=== PATIENT | male | born 1985 | race Caucasian/White ===

== ENCOUNTER 2020-06-30 14:28 | Outpatient (CLI) | payer OTHER ==
[2020-06-30] MEDS ORDERED: GADOBUTROL 15 MMOL/15 ML VIAL ONE (14:46)
[2020-06-30] MEDS ORDERED: GADOBUTROL 15 MMOL/15 ML VIAL IVP ONE (16:24)
--- NOTE | 2020-07-02 13:14 | MRI Report ---
PROCEDURE: Shoulder RT W/WO INDICATIONS: SCAPULA- OTHER SPECIFIED JOINT DISORDERS OF RT LILA CONTRAST: IV CONTRAST: Gadavist ml: 10.5 TECHNIQUE: Noncontrast oblique coronal T1 spin echo and T2 fast spin echo with fat saturation, oblique sagittal T1 spin echo and T2 fast spin echo with fat saturation, axial T1 spin echo and T2 fast spin echo with fat saturation through the shoulder. Post-contrast oblique coronal, oblique sagittal, and axial T1 spin echo with fat saturation through the shoulder. COMPARISON: None. FINDINGS: Image quality: Excellent. Bones and joints: Surface skin marker is placed over posterior lateral aspect of right shoulder over the level of mid to lower scapular. There is no marrow edema. No fracture or dislocation. No suspicio us intraosseous lesion. Soft tissues: There is a fairly homogeneously T1 and T2 hyperintense structure involving posterior la teral right deltoid muscle and measures up to 6.5 x 4.2 x 8.8 cm in size. No contrast enhancement is noted within this structure. Subtle thin internal septations are seen. There is complete suppression of internal signal within this structure on fat suppressed sequences. No other soft tissue mass or fl uid collection is seen. No gross full-thickness muscle or tendon rupture. IMPRESSION: 1. 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 No other soft tissue mass or area of abnor mal enhancement is seen. 2. No marrow signal abnormality. No fracture or dislocation. Reviewed by: Vinayak Hutchison MD on 07/02/2020 12:13 PM [place] Approved by: Vinayak Hutchison MD on 07/02/2020 12:13 PM AKST Station ID: [id number]
== END 2020-06-30 14:29 | disposition home or self-care (01) ==
LOC: DI 14:28
PROVIDERS: ATTEND Orthopaedic Surgery
DX: M25.811 Other specified joint disorders, right shoulder (principal); R22.31 Localized swelling, mass and lump, right upper limb
CPT/HCPCS: 73223; A9585

== ENCOUNTER 2021-10-02 07:52 | Outpatient (CLI) | payer OTHER ==
[2021-10-02 09:01] VITALS: BP 129/101
--- NOTE | 2021-10-02 09:01 | SLEEP CARE CONSULTATION ---
Information from patient questionnaire entered by Michel Sellers MA. I have reviewed and concur with the information entered by Michel Sellers MA. This document represents the service I personally performed and the decisions made by , Damaris Harris ARNP. History of Present Illness Service Date and Time: 10/02/2021 0752 Reason for Visit: New patient ([place] [address], NO PRIORS) Chief Complaint: reports: Unrefreshed sleep, Snoring, Excessive daytime sleepiness, Observed pauses in breathing, Fatigue, Frequent awakenings at night, Other Date of Onset: 2-3 YEARS Usual bedtime: 9-10 PM Time it takes to fall asleep: 15 MINUTES Snores at night: Yes Observed to quit breathing while asleep: Yes Sleeps alone due to snoring: Yes Number of times waking at night: 3 Reasons for waking at night: reports: Gasping for air, Other (unknown reasons; wake up feeling jolted/anxious) Toss, Turn, or Twitch while sleeping: Yes Recalls having dreams: No Usually gets out of bed at: [id number] Feels refreshed in the morning: No Morning headache: Yes (2-3 a week that last until he gets moving in the morning, 20-30 mins) Sleepy or fatigued during the day: Yes Ever fallen asleep while driving: No Takes day naps: Yes (daily, at least an hour) Dreams during day naps: No Prior sleep studies: No Additional HPI information: I had the pleasure of seeing MICHAEL ESPOSITO today regarding the possibility of him having a sleep disorder. His current complaints are excessive daytime sleepiness, fatigue, frequent night awakenings, observed pauses in breathing, snoring and unrefreshed sleep. He states he is tired all the time. He states he wakes up often for no apparent reason. He states he will get up in the morning feeling pressure in body/head and sometimes with shortness of breath/gasping for air. He has been told by his kids that he snores loudly and his will sleep on couch. His has noted pauses in breathing. He states once his head clears in the morning he is fine through the day but he normally takes about an hour nap every day. He denies drowsy driving. - Parasomnia Symptoms Ever been unable to move upon waking from sleep: No Walks in sleep: No Talks in sleep: No Ever acted out dreams in sleep: No Ever felt weak in the knees when startled or emotional: No Bothered by creepy, crawly, restless sensations in legs: No Problems with memory or concentration: No Subjective Initial [place] Sleepiness Scale score: 14 (2021) Social History The patient's occupation is a AT. Patient is and lives in . Have you smoked in the past 12 months: Yes Cigarettes per day (20/pack): 10 Years of smokin Smoking Pack Years: 7.5 Alcohol use: Yes Alcohol amount and frequency: 1-2 X WEEKLY Caffeine use: Yes Caffeine amount and frequency: 1-2 X DAILY Family History Family history of sleep disordered breathing: No (snoring) Family Hx Sleep Apnea: Mother: Snoring, Father: Snoring, Sibling: Snoring, Grandparent: Snoring Allergies and Home Medications Known drug allergies: No Drug allergies reviewed: Yes Home medication list reviewed: Yes (no daily medications or supplements) Review of Systems Cardiovascular: reports: high blood pressure (every time he gets checked at doctor's office) Ear/Nose/Throat: reports: sinus problems (prone to sinus headaches), tonsillectomy (when a child), wisdom teeth removed Immunologic: denies: allergies to food or environment Physical Exam Vital signs obtained and entered by: LI RUFFIN Blood Pressure: 129/101 (RIGHT, PULSE 101, RESP 19, ) Cuff size: wrist Heart Rate: 53 O2 Saturation: 98 (WITH PAPER MASK) Height: 6 ft 1 in Weight: 216 lb (CLOTHES) Body Mass Index: 28.5 BMI Classification: Overweight Neck circumference: 16.5 (inches) Mouth and throat: narrow oropharynx Soft palate: long Hard palate: arched Uvula: normal Uvula visualization: 50% Mallampati Class II Tongue: enlarged in size with teeth hoyt on lateral edges Tonsils: absent bilaterally Chin and jaw: normal size and position Neck: normal w/o lymphadenopathy or thyromegaly Heart: regular rate and rhythm Lungs: clear bilaterally Impression and Plan 1. Suspected Obstructive Sleep Apnea-Hypopnea Syndrome, as suggested by a history of loud and irregular snoring, observed cessation of breath while asleep, gasping or choking in sleep, morning headache, frequent awakening during the night, unrefreshed sleep, and excessive daytime sleepiness. Narrow oropharynx and obesity are common predisposing factors for obstructive sleep apnea-hypopnea syndrome. I recommend proceeding to polysomnography to confirm the diagnosis and to assess severity. If the patient has significant sleep disordered breathing, a manual CPAP titration study will also be performed to find the optimal treatment pressure. I informed the patient of what the sleep studies involve and after some discussion, obtained agreement to proceed. The pathophysiology of obstructive sleep apnea-hypopnea syndrome was discussed with the patient and health risks of cardiovascular and cerebrovascular disease if not treated. AAS brochure for obstructive sleep apnea-hypopnea syndrome given and reviewed. Risks of drowsy driving discussed in detail and patient advised to avoid long distance driving and to cable puller at the first sign of drowsiness. Patient agreed to plan. * Schedule polysomnography +- manual CPAP titration study and return in 1-2 weeks after the study to discuss result and initiate therapy. * Avoid long distance driving or driving when feeling sleepy. * Avoid alcohol, sedative and muscle relaxant around bedtime. * Attempt to lose weight. * Review instructions provided by trained office staff on how to prepare for the sleep study. * Return for follow-up after sleep study completed. Counseling Topics: Weight loss health impact Visit Type: In Office Time Spent with Patient (minutes): 30 Provider Statement: I spent 100% of the Face to Face Visit with the patient with greater than 50% spent counseling the patient and coordination of care.
== END 2021-10-02 07:53 | disposition home or self-care (01) ==
LOC: SC 07:52
PROVIDERS: ATTEND Nurse Practitioner Family
DX: R06.83 Snoring (principal); G47.10 Hypersomnia, unspecified; R53.83 Other fatigue; G47.8 Other sleep disorders; R51.9 Headache, unspecified; R06.81 Apnea, not elsewhere classified; F17.210 Nicotine dependence, cigarettes, uncomplicated; E66.3 Overweight; Z68.28 Body mass index [BMI] 28.0-28.9, adult
CPT/HCPCS: 99203; 99212

== ENCOUNTER 2021-10-08 08:17 | Outpatient (CLI) | payer OTHER | END 2021-10-08 08:18 | disposition home or self-care (01) | LOC: SC 08:17 | PROVIDERS: ATTEND Nurse Practitioner Family | DX: G47.33 Obstructive sleep apnea (adult) (pediatric) (principal); R09.02 Hypoxemia | CPT/HCPCS: 95806 ==

== ENCOUNTER 2021-10-16 12:46 | Outpatient (CLI) | payer OTHER ==
[2021-10-16 13:31] VITALS: BP 138/93
--- NOTE | 2021-10-16 13:31 | SLEEP CARE CONSULTATION ---
Information from patient questionnaire entered by Michel Sellers MA. I have reviewed and concur with the information entered by Michel Sellers MA. This document represents the service I personally performed and the decisions made by , Damaris Harris ARNP. History of Present Illness Service Date and Time: 10/16/2021 1246 Initial [place] Sleepiness Scale score: 14 (2021) Current [place] Sleepiness Scale score: 13 (2021) Additional HPI information: MICHAEL ESPOSITO returns for follow up and results of the recently performed home sleep study. I explained the pathophysiology behind obstructive sleep apnea. We then spent quite a bit of time discussing different treatment options. For mild obstructive sleep apnea, surgery and oral appliance are alternatives to nasal CPAP therapy but in moderate or severe cases, nasal CPAP is the most effective and reliable treatment. Because apnea is primarily in supine position, then positional management therapy could be effective. Methods discussed such as positioning with pillows to prevent supine sleep. I reviewed the impact of weight changes on sleep apnea and strongly recommended losing weight. After some discussion, the patient opted to go with the nasal CPAP therapy. Nasal autoCPAP set at 4-15 cmH20 will be ordered with rationale explained. A manual titration study will be ordered if unable to find optimal pressure with office adjustments. I explained how CPAP machine works and what to expect when using the machine. Using CPAP every night in order to get used to it was emphasized. Patient advised to put CPAP mask on before getting into bed so as not to fall asleep without CPAP. To assist acclimation to CPAP use, it could also be used for a short time during day while reading or watching TV. The patient was instructed to call the CPAP supplier to discuss any mechanical problem that may occur. If the mask given is uncomfortable or is difficult to keep on through the night even with adjustment, contact the CPAP supplier as many will replace with another mask style if notified before 30 days. If snoring or perceives is not getting enough air or too much air from the machine, notify this office. AASM patient education PAP tips reviewed and given to patient. Patient counseled not drink alcohol less than 4 hours before bedtime as it can increase snoring and apnea. Patient was cautioned about risks of drowsy driving until sleepiness symptoms resolve. Sleep Study - Results Type of Sleep Study: Home sleep study (F/U HOMESTUDY) Prior sleep studies: No Polysomnography/Home Sleep Study results: Physician Impression: The quality of the study is good. The length of the study is adequate (> 240 minutes). Please also see the tabulated and graphic data. 1. Obstructive Sleep Apnea-Hypopnea (ICD-10 G47.33), mild, with an AHI of 8.5/hr and juliana SaO2 of 80%. During the study, the patient had 9 apneas (9 obstructive, 0 central, 0 mixed) and 24 hypopneas. The longest episode lasted 74.5 seconds. The patient slept mostly in supine position (supine AHI was 10.1 and non-supine, 0.00). 2. Hypoxemia (ICD-10 R09.02), mild, with the lowest oxygen saturation of 80 % and 2.9 minutes with SaO2 under 90%. Baseline oxygen saturation was normal (Average oxygen saturation was 93%). Allergies and Home Medications Known drug allergies: No Drug allergies reviewed: Yes Home medication list reviewed: Yes (no changes) Review of Systems Review of systems same as previous: Yes (no changes) Physical Exam Vital signs obtained and entered by: Darrius SELLERS CMA KARLOS Blood Pressure: 138/93 (RIGHT, 89 PULSE, RESP 18, ) Cuff size: wrist Heart Rate: 92 O2 Saturation: 97 (PAPER MASK) Height: 6 ft 1 in Weight: 215 lb Body Mass Index: 28.3 BMI Classification: Overweight Impression and Plan 1. Obstructive Sleep Apnea-Hypopnea Syndrome, mild, with lowest oxygen saturation of 80%. Obviously this is the cause of the patients symptoms of unrefreshed sleep, and excessive daytime sleepiness. As mentioned above, the patient will be started on nasal autoCPAP therapy with pressure set at 4-15 cmH2 O. Compliance guidelines also reviewed. A copy of compliance guidelines will be given for reference at check out. Because the apnea is more severe supine, I instructed to avoid sleeping supine using pillow positioning until able to start CPAP use. 2. Hypoxemia, mild, with the lowest oxygen saturation of 80 % and 2.9 minutes with SaO2 under 90%. His baseline oxygen saturation was normal with an average oxygen saturation of 93%. * Nasal auto CPAP therapy, pressure at 4-15 cm H2O. * Attempt to lose weight. * Avoid alcohol consumption near bedtime. * Avoid supine sleep until using CPAP. * The patient is again cautioned about driving until sleepiness completely resolves. * Return one month after CPAP obtained. I will assess response to therapy and compliance at that time. Counseling Topics: Sleeping position, Weight loss health impact Visit Type: In Office Time Spent with Patient (minutes): 20 Provider Statement: I spent 100% of the Face to Face Visit with the patient with greater than 50% spent counseling the patient and coordination of care.
== END 2021-10-16 12:47 | disposition home or self-care (01) ==
LOC: SC 12:46
PROVIDERS: ATTEND Nurse Practitioner Family
DX: G47.33 Obstructive sleep apnea (adult) (pediatric) (principal); R09.02 Hypoxemia; E66.3 Overweight; Z68.28 Body mass index [BMI] 28.0-28.9, adult
CPT/HCPCS: 99212; 99213

== ENCOUNTER 2022-03-25 08:30 | Outpatient (CLI) | payer OTHER ==
[2022-03-25 09:21] VITALS: BP 143/98
--- NOTE | 2022-03-25 09:21 | SLEEP CARE CONSULTATION ---
Information from patient questionnaire entered by Michel Sellers MA. I have reviewed and concur with the information entered by Michel Sellers MA. This document represents the service I personally performed and the decisions made by , Damaris Harris ARNP. History of Present Illness Service Date and Time: 03/25/2022 0830 Previous diagnosis: Mild, Obstructive Sleep Apnea-Hypopnea Syndrome AHI: 8.5 (2021) Reason for follow up: first compliance (BAM HILTON 02/17/2022, ) Equipment type: CPAP Equipment obtained from: Other ([facility]; got initial supplies) Mask style: Full face Backup mask available: No (will keep old mask when replaced) Last cushion change: 1 month Prior sleep studies: No Type of Sleep Study: Home sleep study (F/U HOMESTUDY) HPI additional information: MICHAEL ESPOSITO was diagnosed to have mild, AHI 8.5, obstructive sleep apnea-hypopnea syndrome and returned today for CPAP therapy first compliance follow-up. Sleep Study - Results Type of Sleep Study: Home sleep study (F/U HOMESTUDY) Prior sleep studies: No CPAP Compliance Data - Data Reviewed with Patient Average duration of nightly device use: 6 hours 20 minutes Compliance rate %: 90 (02/23/2022-03/24/2022; 29/30 days used) Current pressure setting (cmH2O): 4-15 (median 6.0, avg 9.6, max 11.4) Average residual AHI: 1.6 Central apnea: .1 Obstructive apnea: .5 Hypopnea: .1 Average large leak: .3 Subjective Missed days of use due to: reports: travel, other (woke up with mask off face) Patient concerns: reports: other (needs supplies). denies: aerophagia, mask discomfort, air blowing in eyes, mask leak noise, condensation in mask/hose, nasal congestion, dry mouth, nose, throat, epistaxis Observed to snore while using device: No Current pressure setting perceived as: comfortable On therapy, patient: reports: sleeping better, awakening more refreshed, being more awake and alert during the day, more rested overall. denies: drowsiness while driving Initial [place] Sleepiness Scale score: 14 (2021) Current [place] Sleepiness Scale score: 12 (03/25/2022) Allergies and Home Medications Known drug allergies: No Drug allergies reviewed: Yes Home medication list reviewed: Yes (no changes) Review of Systems Review of systems same as previous: Yes (no changes) Physical Exam Vital signs obtained and entered by: LI RUFFIN Blood Pressure: 143/98 (RIGHT, PULSE 76, RESP 18, ) Heart Rate: 74 O2 Saturation: 98 (PAPER MASK) Height: 6 ft 1 in Weight: 230 lb (UNIFORM AND BOOTS) Body Mass Index: 30.3 BMI Classification: Obese Impression and Plan 1. Obstructive Sleep Apnea-Hypopnea Syndrome, mild, with good treatment compliance and good apnea control. On CPAP therapy, the patient has better sleep quality and is more rested overall. The patients pressure will be changed to autoCPAP 9-12 cmH20 to reflect the pressures being used. Patient advised to contact me if pressure change is uncomfortable so that it can be adjusted. Goals for apnea control discussed. Patient denies problems with oral dryness, nasal congestion, epistaxis, skin irritation or aerophagia. Patient's apnea severity and rationale for treatment to reduce apnea, improve sleep quality and reduce cardiovascular and cerebrovascular events was reviewed. 2. Obesity, unspecified. Currently patients BMI is 30.3. Obesity increases the risk of apnea, CPAP pressure requirements and overall health risks especially cardiovascular and diabetes. Thus patient is advised to try to lose weight. Weight loss can be done with reducing portion size, reducing refined foods and balancing content with vegetables, fruit and whole grain foods * Change auto CPAP pressure to 9-12 cmH2O * Notify me if snoring with mask or feeling that the pressure is too much or too little * Attempt to lose weight * Call this office if any problems using CPAP * Return for follow up in 1-2 months, or sooner if concerns arise Counseling Topics: Spare mask, Weight loss health impact Visit Type: In Office Time Spent with Patient (minutes): 20 Provider Statement: I spent 100% of the Face to Face Visit with the patient with greater than 50% spent counseling the patient and coordination of care.
== END 2022-03-25 08:31 | disposition home or self-care (01) ==
LOC: SC 08:30
PROVIDERS: ATTEND Nurse Practitioner Family
DX: G47.33 Obstructive sleep apnea (adult) (pediatric) (principal); E66.9 Obesity, unspecified; Z68.30 Body mass index [BMI] 30.0-30.9, adult
CPT/HCPCS: 99212; 99213

== ENCOUNTER 2022-05-06 08:39 | Outpatient (CLI) | payer OTHER ==
[2022-05-06 09:22] VITALS: BP 118/78
--- NOTE | 2022-05-06 09:22 | SLEEP CARE CONSULTATION ---
Information from patient questionnaire entered by Jacquelyn Hooks MA. I have reviewed and concur with the information entered by Jacquelyn Hooks MA. This document represents the service I personally performed and the decisions made by , Damaris Harris ARNP. History of Present Illness Service Date and Time: 05/06/2022 0839 Previous diagnosis: Mild, Obstructive Sleep Apnea-Hypopnea Syndrome AHI: 8.5 (2021) Reason for follow up: other (PRESSURE CHANGE ) Equipment type: CPAP Equipment obtained from: Other ([facility]; waiting on supplies) Mask style: Full face Backup mask available: No (will keep old mask when replaced) Prior sleep studies: No Type of Sleep Study: Home sleep study (F/U HOMESTUDY) HPI additional information: MICHAEL ESPOSITO was diagnosed to have mild, AHI 8.5, obstructive sleep apnea-hypopnea syndrome and returned today for CPAP therapy 6 week with pressure change follow- up. Sleep Study - Results Type of Sleep Study: Home sleep study (F/U HOMESTUDY) Prior sleep studies: No CPAP Compliance Data - Data Reviewed with Patient Average duration of nightly device use: 6HR 42 MIN Compliance rate %: 80 (03/06/22 - 05/04/22; 53/60 days used) Current pressure setting (cmH2O): 9-12 Average residual AHI: 1.1 Subjective Missed days of use due to: reports: other (Deployed) Patient concerns: denies: aerophagia, mask discomfort, air blowing in eyes, mask leak noise, condensation in mask/hose, nasal congestion, dry mouth, nose, throat, epistaxis, other Observed to snore while using device: No Current pressure setting perceived as: comfortable On therapy, patient: reports: sleeping better, awakening more refreshed, being more awake and alert during the day, more rested overall. denies: drowsiness while driving Initial [place] Sleepiness Scale score: 14 (2021) Current [place] Sleepiness Scale score: 8 (05/06/22) Allergies and Home Medications Home medication list reviewed: Yes (no changes) Review of Systems Review of systems same as previous: Yes (no changes) Physical Exam Vital signs obtained and entered by: Agata HOOKS MA Blood Pressure: 118/78 Cuff size: regular Heart Rate: 82 Height: 6 ft 1 in Weight: 236 lb 9.6 oz Body Mass Index: 31.1 BMI Classification: Obese Impression and Plan 1. Obstructive Sleep Apnea-Hypopnea Syndrome, mild, with good treatment compliance and good apnea control. On CPAP therapy, the patient has better sleep quality and is more rested overall. Patient states he tried some nasal pillows mask but it pushed up uncomfortably on his nose. He went back to using the a fullface mask and he states he is doing well. He finds it comfortable and has no complaints. Patient denies problems with oral dryness, nasal congestion, epistaxis, skin irritation or aerophagia. He has not yet received any more supplies beyond his initial supplies. He had some friends with [employer] help him with some filters and hose that he needed. He contacted [facility] about supplies but they told him that he would have to wait for his 90-day supply period before he receives more supplies. Patient's apnea severity and rationale for treatment to reduce apnea, improve sleep quality and reduce cardiovascular and cerebrovascular events was reviewed. 2. Obesity, unspecified. Currently patients BMI is 31.1. Obesity increases the risk of apnea, CPAP pressure requirements and overall health risks especially cardiovascular and diabetes. Thus patient is advised to lose weight. The patient's CPAP pressure range should accommodate some weight loss. Symptoms to report for additional pressure adjustment discussed. * Continue auto CPAP pressure at 9-12 cmH2O * Notify me if snoring with mask or feeling that the pressure is too much or too little * Attempt to lose weight * Call this office if any problems using CPAP * Return for follow up in 6 months, or sooner if concerns arise Counseling Topics: Spare mask, Weight loss health impact Visit Type: In Office Time Spent with Patient (minutes): 20 Provider Statement: I spent 100% of the Face to Face Visit with the patient with greater than 50% spent counseling the patient and coordination of care.
== END 2022-05-06 08:40 | disposition home or self-care (01) ==
LOC: SC 08:39
PROVIDERS: ATTEND Nurse Practitioner Family
DX: G47.33 Obstructive sleep apnea (adult) (pediatric) (principal); E66.9 Obesity, unspecified; Z68.31 Body mass index [BMI] 31.0-31.9, adult
CPT/HCPCS: 99212; 99213

== ENCOUNTER 2022-12-02 08:14 | Outpatient (CLI) | payer OTHER ==
[2022-12-02 08:44] VITALS: BP 140/90
--- NOTE | 2022-12-02 08:44 | SLEEP CARE CONSULTATION ---
Information from patient questionnaire entered by Isael Donohue. I have reviewed and concur with the information entered by Isael Donohue. This document represents the service I personally performed and the decisions made by , Damaris Harris ARNP. History of Present Illness Service Date and Time: 12/02/2022 0814 Previous diagnosis: Mild, Obstructive Sleep Apnea-Hypopnea Syndrome AHI: 8.5 (2021) Reason for follow up: six month Equipment type: CPAP (RESMED Airsense 10, s/u 01/2022) Equipment obtained from: Other ([facility]; getting supplies) Mask style: Full face Backup mask available: No (waiting on shipment) Last cushion change: 1-2 months Prior sleep studies: No Type of Sleep Study: Home sleep study (F/U HOMESTUDY) HPI additional information: MICHAEL ESPOSITO was diagnosed to have mild, AHI 8.5, obstructive sleep apnea-hypopnea syndrome and returned today for CPAP therapy six month follow-up. 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 denies: aerophagia, mask discomfort, air blowing in eyes, condensation in mask/hose, nasal congestion, dry mouth, nose, throat, epistaxis Observed to snore while using device: No Current pressure setting perceived as: comfortable On therapy, patient: reports: sleeping better, awakening more refreshed, being more awake and alert during the day, more rested overall. denies: drowsiness while driving Initial [place] Sleepiness Scale score: 14 (2021) Current [place] Sleepiness Scale score: 4 (12/02/22) Allergies and Home Medications Known drug allergies: No Drug allergies reviewed: Yes Home medication list reviewed: Yes (no changes) Review of Systems Review of systems same as previous: Yes (no changes) Physical Exam Vital signs obtained and entered by: ISAEL Morfin MA Blood Pressure: 140/90 (LEFT ARM) Cuff size: regular Heart Rate: 74 O2 Saturation: 98 Height: 6 ft 1 in Weight: 241 lb 6.4 oz Body Mass Index: 31.8 BMI Classification: Obese Impression and Plan 1. Obstructive Sleep Apnea-Hypopnea Syndrome, mild, with fair treatment compliance and good apnea control. On CPAP therapy, the patient has better sleep quality and is more rested overall. Patient says his mask/tubing got caught and tore a hole in the headgear near top of head. He has taped it. He ordered a new one and is waiting for this to come in the mail. 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 Patient has significant improvement of their sleep apnea and is satisfied with current CPAP therapy. Patient denies problems with oral dryness, nasal congestion, epistaxis, skin irritation or aerophagia. Patient's apnea severity and rationale for treatment to reduce apnea, improve sleep quality and reduce cardiovascular and cerebrovascular events was reviewed. He states he will be moving in January to a new area. I advised him to establish with a sleep provider in his new area for his next followup and he voiced understanding. 2. Obesity, unspecified. Currently patients BMI is 31.8. Obesity increases the risk of apnea, CPAP pressure requirements and overall health risks especially cardiovascular and diabetes. Thus patient is advised to lose weight. The patient's CPAP pressure range should accommodate some weight loss. Symptoms to report for additional pressure adjustment discussed. * Continue auto CPAP pressure at cmH2O * Notify me if snoring with mask or feeling that the pressure is too much or too little * Attempt to lose weight * Call this office if any problems using CPAP * Return for follow up in 1 year, or sooner if concerns arise Counseling Topics: Spare mask, Weight loss health impact Visit Type: In Office Time Spent with Patient (minutes): 14 Provider Statement: I spent 100% of the Face to Face Visit with the patient with greater than 50% spent counseling the patient and coordination of care.
== END 2022-12-02 08:15 | disposition home or self-care (01) ==
LOC: SC 08:14
PROVIDERS: ATTEND Nurse Practitioner Family
DX: G47.33 Obstructive sleep apnea (adult) (pediatric) (principal); E66.9 Obesity, unspecified; Z68.31 Body mass index [BMI] 31.0-31.9, adult
CPT/HCPCS: 99212